=== PATIENT | male | born 1980 | race Caucasian/White ===

== ENCOUNTER 2016-08-09 15:25 | Inpatient (IN) | payer OTHER ==
[~2016-08-09] VITALS: Ht 180.3 cm; Wt 65.8 kg
--- NOTE | 2016-08-10 01:10 | NUR ---
PREADMISSION NOTE At this time pt is mildly intoxicated but is in stable condition and oriented x 4 with no changes in LOC. Pt's vitals are as follows BP: 122/91 HR:109 T:98.0 R: 20 COW: 7 CIWA: 5. Pt was made aware of [facility]'s protocol for assessment of vitals and withdrawal symptoms Q4H. Pt was also encouraged to ask questions or notify staff of any concerns. Pt verbalized an understanding. Pt cleared to come on the floor. Will proceed with admission once client arrives on the floor.
[2016-08-10] MEDS ORDERED: MAGNESIUM HYDROXIDE 30 ML LIQUID UDC PO PRN (01:45)
[2016-08-10] MEDS ORDERED: MIRALAX 17 GM POWD.PACK PO PRN (01:45)
[2016-08-10] MEDS ORDERED: IBUPROFEN 400 MG TABLET PO PRN (01:45)
[2016-08-10] MEDS ORDERED: DICYCLOMINE HCL 20 MG TABLET PO PRN (01:45)
[2016-08-10] MEDS ORDERED: BUPRENORPHINE HCL 2 MG TAB.SUBL SL PRN (01:45)
[2016-08-10] MEDS ORDERED: ONDANSETRON ODT 4 MG TAB.RAPDIS SL PRN (01:45)
[2016-08-10] MEDS ORDERED: diphenhydrAMINE 50 MG CAPSULE PO PRN (01:45)
[2016-08-10] MEDS ORDERED: LOPERAMIDE HCL 2 MG CAPSULE PO PRN ×2 (01:45)
[2016-08-10] MEDS ORDERED: MAG HYDROX/AL HYDROX/SIMETH 30 ML LIQUID UDC PO PRN (01:45)
--- NOTE | 2016-08-10 02:00 | NUR ---
ADMISSION NOTE Pt arrived ambulatory to the [facility] 3rd floor (accompanied by [facility] staff) at approximately 0120. Pt is a 35 y/o male being admitted for Benzodiazepine, Opiate, and Meth dependence and use. Pt denies having any allergies but reported having a PMH of anxiety, depression, bipolar, HTN, appendix removal, spinal meningitis (age 12), Right hand carpal tunnel, and Right foot injury/surgery r/t work (2010) . Pt is with two children. Pt stated " We live in [place]. I would rather not mention my workplace, but my highest level of education is college." Pt reported not having a primary care physician or psych doctor at this time. Pt didn't arrive with any medications but reported once taking Lamictal and Zoloft ( last taken 7 months ago). Pt was then asked about his substance use history including; what substance(s) he is using, what route, frequency, amount, last date used, and last amount used. Pt responded " I'm here to detox from Heroin. I use needles but I do not share them. I started using Heroin heavy 6 years ago after I couldn't get any more pain meds for my foot. I was sober for eight months but I relapsed three months ago. I'm up to about 1 gram a day. I used some around 2:30 pm today (08/09/16) . I had 0.1 and half gram. I took Ativan earlier today too. Just 2 mg to help with my plane ride. I don't abuse that. I started taking Meth 6 years ago too. I just mix it in with my Heroin. A half of a gram can last me the whole week. I had some with the Heroin today too. Probably 0.1 mg " Upon assessment pt's skin is dry and intact with no rashes, lesions, lacerations, abrasions, or bruises noted. PERRLA noted. Skin turgor indicates adequate hydration. Lung auscultations are clear in all lobes, however pt has a non productive cough. No SOB noted or reported. Bowel sounds present in all 4 quadrants. Abdomen soft and non distended. 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 Pt denies any pain/discomfort at this time. Vital signs: BP: 122/91 HR:109 T:98.0 R: 20 COW: 7 CIWA: 5. All safety measures in place; side rails up x 2, bed locked and in low position, and call light within reach. Will continue to monitor.
[2016-08-10] MEDS: CLONIDINE HCL 0.1 MG TABLET PO PRN (02:27)
[2016-08-10] MEDS: METHOCARBAMOL 750 MG TABLET PO PRN (02:27)
--- NOTE | 2016-08-10 02:27 | NUR ---
CLONIDINE AND ROBAXIN PRN ADMINISTRATION Pt reported being restless and mildly agitated along with having body aches. Robaxin 750 mg PO PRN and Clonidine 0.1 mg PO PRN (blood pressure at this time 127/91) was given. Pt was encouraged to notify staff of any changes in condition or of any concerns. Pt verbalized an understanding. All safety measures in place. Will monitor for effectiveness.
[2016-08-10] MEDS ORDERED: CLONIDINE HCL 0.1 MG TABLET ONE (02:34)
[2016-08-10] MEDS ORDERED: METHOCARBAMOL 750 MG TABLET ONE (02:34)
[2016-08-10 02:45] LABS: *AMPHETAMINE, URINE POSITIVE (NEGATIVE); *BARBITURATE, URINE NEGATIVE (NEGATIVE); *CANNABINOID, URINE NEGATIVE (NEGATIVE); *COCCAINE, URINE NEGATIVE (NEGATIVE); *OPIATE, URINE POSITIVE (NEGATIVE); *PHENCYCLIDINE SCREEN,URINE NEGATIVE (NEGATIVE)
[2016-08-10 03:11] LABS: ALANINE AMINOTRANSFERASE 28 U/L (16-63); ALKALINE PHOSPHATASE 116 U/L (50-136); ASPARTATE AMINOTRANSFERASE 13 U/L (15-37); BILIRUBIN,TOTAL 0.5 mg/dL (0.2-1.0); CARBON DIOXIDE 26 mmol/L (21-32); CHLORIDE 105 mmol/L (98-107); GLUCOSE 130 mg/dL (74-106); MAGNESIUM 2.3 mg/dL (1.8-2.4); POTASSIUM 3.4 mmol/L (3.5-5.1); TOTAL PROTEIN, SERUM 7.6 g/dL (6.4-8.2); UREA NITROGEN, BLOOD 7 mg/dL (7-18)
[2016-08-10 03:13] LABS: ETHANOL < 3 MG/DL (0-0)
[2016-08-10 03:24] LABS: BASOPHILS # (AUTO) 0.2 K/uL (0.0-8.0); BASOPHILS % (AUTO) 1.6 % (0.0-2.0); EOSINOPHILS # (AUTO) 0.1 K/uL (0.0-0.7); EOSINOPHILS % (AUTO) 0.9 % (0.0-7.0); HEMATOCRIT 43.1 % (40-50); HEMOGLOBIN 13.8 G/DL (14.0-18.0); LYMPHOCYTES # (AUTO) 1.9 K/UL (0.8-4.8); LYMPHOCYTES % (AUTO) 15.9 % (20.5-51.5); MEAN CORPUSCULAR HEMOGLOBIN 26.2 UUG (27.0-31.0); MEAN CORPUSCULAR HGB CONC 32 g/dL (32.0-37.0); MEAN CORPUSCULAR VOLUME 81.9 FL (82.0-92.0); MONOCYTES # (AUTO) 0.6 K/UL (0.1-1.30); MONOCYTES % (AUTO) 5.5 % (0.0-11.0); NEUTROPHILS # (AUTO) 8.9 K/UL (1.8-8.9); NEUTROPHILS % (AUTO) 76.1 % (38.5-71.5); PLATELET COUNT (AUTO) 291 K/UL (150-450); RED BLOOD CELL COUNT(AUTO) 5.26 MIL/UL (4.7-6.1); WHITE BLOOD COUNT (AUTO) 11.7 K/UL (4.0-11.2)
--- NOTE | 2016-08-10 03:27 | NUR ---
ROBAXIN AND CLONIDINE PRN REASSESSMENT Pt stated " I don't feel the best, but it helped a little bit." PRNS effective. Will continue to monitor.
[2016-08-10 04:00] VITALS: BP 138/92
[2016-08-10] MEDS: HYDROXYZINE PAMOATE 25 MG CAPSULE PO PRN (04:29)
--- NOTE | 2016-08-10 04:29 | NUR ---
VISTARIL PRN ADMINISTRATION Pt stated " I can't relax and I'm anxious. I know I'm not going to be able to sleep tonight." Pt was offered Benadryl but declined stating " It doesn't work for me. It does the opposite and wires me up." With pt's verbal consent Vistaril 50 mg PO PRN was given. Pt was encouraged to notify staff of any changes in condition or of any concerns. Pt verbalized an understanding. All safety measures in place. Will monitor for effectiveness.
[2016-08-10] MEDS ORDERED: HYDROXYZINE PAMOATE 25 MG CAPSULE ONE (04:32)
[2016-08-10] MEDS ORDERED: POTASSIUM CHLORIDE 20 MEQ TAB.PRT.SR ONE (04:36)
--- NOTE | 2016-08-10 05:29 | NUR ---
VISTARIL PRN REASSESSMENT At this time pt is asleep in bed with no signs of discomfort/distress noted. Pt is aroused with noise and stated " I'm okay for now." PRN effective. Will continue to monitor.
[2016-08-10] MEDS ORDERED: POTASSIUM CHLORIDE 20 MEQ TAB.PRT.SR PO ONE (06:00)
--- NOTE | 2016-08-10 07:16 | NUR ---
END OF SHIFT NOTE Pt is a 35 y/o male being admitted for Benzodiazepine, Opiate, and Meth dependence and use. Pt denies having any allergies but reported having a PMH of anxiety, depression, bipolar, HTN, appendix removal, spinal meningitis (age 12), Right hand carpal tunnel, and Right foot injury/surgery r/t work (2010). Pt is not on a taper at this time but has PRN medications for any discomfort/distress. Pt received Clonidine 0.1 mg PO PRN, Robaxin 750 mg PO PRN, and Vistaril 50 mg PO PRN during the shift. Pt also received K dur 40 MEQ for insufficient potassium level. Pt slept only 2 hours. Last COW: 8 and CIWA: 5 (0400). All safety measures in place. Endorsed to the oncoming nurse.
[2016-08-10 08:00] VITALS: BP 131/93
[2016-08-10] MEDS: MULTIVITAMINS,THERAPEUTIC TABLET PO SCH (08:50)
[2016-08-10] MEDS ORDERED: LORAZEPAM 2 MG/1 ML VIAL IM PRN (09:30)
[2016-08-10] MEDS ORDERED: BUPRENORPHINE HCL 2 MG TAB.SUBL SL SCH (09:30)
[2016-08-10] MEDS ORDERED: LORAZEPAM 1 MG TABLET PO PRN ×2 (09:30)
--- NOTE | 2016-08-10 10:00 | NUR ---
START OF SHIFT Received report from table games shift manager nurse. Received patient laying in bed with eyes closed. Patient is 35 year old male admitted for medically supervised withdrawal from benzo, meth and opiates. Patient is full code with NKA. On fall precaution and seizure precautions. On assessment this AM: CIWA: 6 and COWS: 7. Patient reports mainly on body aches, also reports tactile sensation and anxiety. Denies any SOB, chest pain, tremors, sweating, or headache, visual or auditory hallucinations. Vitals WNL. Refused multivitamin. Patient was encouraged to attend group meetings today. Will continue to monitor patient.
[2016-08-10] MEDS ORDERED: BACLOFEN 20 MG TABLET PO ONE (10:45)
[2016-08-10] MEDS ORDERED: LORAZEPAM 1 MG TABLET PO ONE (10:45)
[2016-08-10] MEDS ORDERED: CLONIDINE HCL 0.1 MG TABLET PO ONE (10:45)
--- NOTE | 2016-08-10 10:46 | NUR ---
ONE TIME ATIVAN Patient received one time Ativan 1mg po tab as ordered. CIWA: 9
--- NOTE | 2016-08-10 11:46 | NUR ---
REASSESSMENT (ONE TIME ATIVAN) Patient reports feeling much better, at ease, decreased body aches. CIWA: 5
[2016-08-10 12:00] VITALS: BP 144/93
[2016-08-10] MEDS ORDERED: IBUPROFEN 600 MG TABLET PO PRN (12:45)
[2016-08-10] MEDS: BUPRENORPHINE HCL 2 MG TAB.SUBL SL SCH ×3 (13:15→21:04)
--- NOTE | 2016-08-10 15:20 | NUR ---
Therapist spoke with client, and encouraged client to attend daily group therapy. Client agreed and stated that he will attend the 3:30pm group today.
[2016-08-10 16:00] VITALS: BP 145/97
[2016-08-10] MEDS: ACETAMINOPHEN 325 MG TABLET PO PRN (17:16)
--- NOTE | 2016-08-10 17:16 | NUR ---
PRN TYLENOL Patient complains of headache 09/25. PRN Tylenol given. Will continue to monitor patient and effectiveness of med.
--- NOTE | 2016-08-10 18:16 | NUR ---
REASSESSMENT PRN TYLENOL Patient reports headache is better, pain 3/10.
--- NOTE | 2016-08-10 19:00 | NUR ---
END OF SHIFT Patient is 35 year old male admitted for medically supervised withdrawal from benzo, meth and opiates. Patient is full code with NKA. On fall precaution and seizure precautions. Patient started his 5-day subutex taper today (08/10/16) with COWS 13. Most recent CIWA: 7 and COWS: 5. After receiving his first dose of Subutex, patient reports body aches has improved a lot. Patient reports mild anxiety and restless legs. Patient's behavior is appropriate. Patient is tolerating her current diet without n/v. All needs met. parking enforcershift boss will continue to monitor patient.
[2016-08-10 20:00] VITALS: BP 143/96
--- NOTE | 2016-08-10 20:00 | NUR ---
START OF SHIFT NOTE PATIENT ALERT AND ORIENTED X 4. RESPIRATION EVEN AND UNLABORED. PATIENT REPORTS PMH OF ANXIETY IN EVIDENCE OF HR 103, ,TREMORS, NO ABDOMINAL CRAMPING, CHILLS, SWEATING, STUFFY NOSE AND BACK PAIN 4/10 , TOLERABLE, STATES HE DOES NOT NEED PAIN MEDICATION. PATIENT STATES HE ATTENDED ALL GROUPS . RECEIVED REPORT FROM DAY SHIFT NURSE. PATIENT IS A 35 YEAR OLD MALE, ADMITTED FOR OPIATE/BENZO/METH DEPENDENCE. PATIENT IS ON 1ST DAY OF HIS 5 DAY ATIVAN SUBUTEX TAPER. PATIENT IS FULL CODE, REGULAR DIET AND NO KNOWN ALLERGY. PATIENT REPORTS PMH OF BIPOLAR, DEPRESSION. ANXIETY. HTN, SPINAL MENINGITIS (12 YEARS OLD), APPENDIX REMOVAL, RIGHT HAND CARPAL TUNNEL , AND RIGHT FOOT INJURY. PATIENT IS ON FALL/SEIZURE PRECAUTION. SKIN INTACT. PATIENT WAS GIVEN PRN TYLENOL DURING THE DAY. LAST CIWA 7 AND COWS 5. SAFETY MEASURES IN PLACE. CALL LIGHT IN REACH. WILL CONTINUE TO MONITOR.
[2016-08-11] VITALS: BP 105/72
[2016-08-11 04:00] VITALS: BP 115/72
[2016-08-11 05:09] LABS: HEPATITIS B SURFACE AG Negative (Negative)
--- NOTE | 2016-08-11 07:36 | NUR ---
END OF SHIFT NOTE PATIENT REMAIN ALERT AND ORIENTED X 4. RESPIRATION EVEN AND UNLABORED. PATIENT REPORTED ANXIETY, ,TREMORS, NO ABDOMINAL CRAMPING, CHILLS , SWEATING, STUFFY NOSE AND BACK PAIN 4/10 , TOLERABLE BEGINNING OF SHIFT. PATIENT STATES HE ATTENDED ALL GROUPS . PATIENT IS A 35 YEAR OLD MALE, ADMITTED FOR OPIATE/BENZO/METH DEPENDENCE. PATIENT IS ON 1ST DAY OF HIS 5 DAY SUBUTEX TAPER, TOLERATED WELL. NO ADVERSE REACTION. PATIENT IS FULL CODE, REGULAR DIET AND NO KNOWN ALLERGY. PATIENT REPORTS PMH OF BIPOLAR, DEPRESSION. ANXIETY. HTN, SPINAL MENINGITIS (12 YEARS OLD), APPENDIX REMOVAL, RIGHT HAND CARPAL TUNNEL , AND RIGHT FOOT INJURY. PATIENT IS ON FALL/SEIZURE PRECAUTION. SKIN INTACT. PATIENT DID NOT REQUIRE ANY PRN MEDICATION DURING SHIFT . PATIENT COMPLIANT WITH MEDICATION AND TREATMENT PLAN. REMAIN FREE OF INJURY. SAFETY MEASURES IN PLACE. CALL LIGHT IN REACH. WILL CONTINUE TO MONITOR. SLEPT 8 HOURS. FLUID INTAKE 1,700 ML. VOIDED X 4 . NO BM. LAST COWS 2 AND CIWA 1.
--- NOTE | 2016-08-11 07:55 | NUR ---
START OF SHIFT Rcvd endorsement from night nurse, client is in bed, A/O to name, place, and time, he presents with anxious mood, flat affect, stating "I feel like crap, I was sweating, I got chills, my head feel really tight." he denies any N/V/D. He denies any SI/HI. Encouraged increased fluids to assist in facilitating detox. Encouraged group attendance to help maintain sobriety. Client is on 4 out of 5 day of Subutex taper to managed s/sx of withdrawal he was admitted for medically-supervised withdrawal from opioids, benzodiazepine and meth. He denies any hx of induced-withdrawal seizure. Full code status, NKA, regular diet. He slept 8 hrs. Last COWS 2/ CIWA 1 @ 0400. Seizure precautions. Side rails x 2 up/padded. Call light within reach. Will continue plan of care.
[2016-08-11] MEDS: ACETAMINOPHEN 325 MG TABLET PO PRN (08:11)
[2016-08-11] MEDS: MULTIVITAMINS,THERAPEUTIC TABLET PO SCH (08:11)
--- NOTE | 2016-08-11 08:11 | NUR ---
PRN Tylenol 650mg Client reports headache around head, he stated "It feel like a rubber band is at my head." 07/26. Encouraged to increase PO fluid intake as tolerated, Tylenol 650mg PO administered. Risk/benefits discuss. Call light within reach.
[2016-08-11] MEDS: BUPRENORPHINE HCL 2 MG TAB.SUBL SL SCH ×3 (08:12→20:22)
--- NOTE | 2016-08-11 08:14 | NUR ---
TB TEST ADMINISTERED TO L F/A, CLIENT TOLERATED WELL.
[2016-08-11 08:33] VITALS: BP 116/83
[2016-08-11] MEDS ORDERED: TUBERCULIN,PURIF.PROT.DERIV. 5 TU/0.1 ML TEST ID ONE (09:00)
--- NOTE | 2016-08-11 09:11 | NUR ---
Reassessment PRN Tylenol 650mg Client reports relief from headache 03/28, but tolerable, stating "I know what to expect from detox, I just need to rest and keep drinking fluids." Call light within reach.
[2016-08-11] MEDS ORDERED: CLONIDINE HCL 0.1 MG TABLET PO ONE (12:00)
[2016-08-11] MEDS ORDERED: BUPRENORPHINE HCL 2 MG TAB.SUBL SL ONE (12:00)
[2016-08-11] MEDS: CLONIDINE HCL 0.1 MG TABLET PO PRN ×2 (12:20→20:23)
[2016-08-11 12:23] VITALS: BP 147/88
--- NOTE | 2016-08-11 13:34 | NUR ---
Therapist spoke with client about attending group therapy sessions. Client asked when the next group session was and therapist informed him. Client stated that he was looking forward to the afternoon group.
--- NOTE | 2016-08-11 13:57 | NUR ---
Nursing notes Client's Franchesca called to inquire about his status, Client has been having withdrawal symptoms and being managed with taper and PRN medications, she verbalized understanding.
[2016-08-11] MEDS: GABAPENTIN 300 MG CAPSULE PO SCH ×2 (15:21→20:22)
[2016-08-11 15:25] LABS: BASOPHILS # (AUTO) 0.1 K/uL (0.0-8.0); BASOPHILS % (AUTO) 0.8 % (0.0-2.0); EOSINOPHILS # (AUTO) 0.4 K/uL (0.0-0.7); EOSINOPHILS % (AUTO) 3.6 % (0.0-7.0); HEMATOCRIT 42.8 % (40-50); HEMOGLOBIN 14.1 G/DL (14.0-18.0); LYMPHOCYTES # (AUTO) 2.7 K/UL (0.8-4.8); LYMPHOCYTES % (AUTO) 21.9 % (20.5-51.5); MEAN CORPUSCULAR HEMOGLOBIN 27.3 UUG (27.0-31.0); MEAN CORPUSCULAR HGB CONC 33 g/dL (32.0-37.0); MEAN CORPUSCULAR VOLUME 83.1 FL (82.0-92.0); MONOCYTES # (AUTO) 1.1 K/UL (0.1-1.30); MONOCYTES % (AUTO) 9.2 % (0.0-11.0); NEUTROPHILS # (AUTO) 8.1 K/UL (1.8-8.9); NEUTROPHILS % (AUTO) 64.5 % (38.5-71.5); PLATELET COUNT (AUTO) 297 K/UL (150-450); RED BLOOD CELL COUNT(AUTO) 5.15 MIL/UL (4.7-6.1); WHITE BLOOD COUNT (AUTO) 12.4 K/UL (4.0-11.2)
[2016-08-11 15:30] LABS: PHOSPHOROUS 3.4 mg/dL (2.5-4.9); POTASSIUM 4.6 mmol/L (3.5-5.1)
[2016-08-11 16:00] VITALS: BP 128/81
--- NOTE | 2016-08-11 17:13 | NUR ---
MD NOTIFICATION Dr. Calvin made aware of lab values WBC 12.4 IRON 29 % SATURATION 10 NNO at this time.
--- NOTE | 2016-08-11 18:24 | NUR ---
END OF SHIFT Client is in group therapy to improve coping skills. Subutex taper continues and is effective managing his s/sx of withdrawal (chills, body aches, anxiety and irritability) He is a 35 y/o male admitted to [facility] on 08/10/16 for medically-supervised withdrawal from opioids, benzodiazepines and meth. NKA, Regular diet, full code. Last CIWA 4/COWS 6. PRN Tylenol for FLORIAN; noted effective. Adequate intake 3326mL and output void x 4, stool x 2. Seizure precautions. Side rails x 2 up/padded. Call light within reach. Endorsed to incoming nurse.
--- NOTE | 2016-08-11 18:24 | NUR ---
START OF SHIFT NOTE Patient endorsed by day shift nurse. SBAR Report received. Patient is a 35 year old male admitted to [facility] on 08/10/16 for Opioid/Benzodiazepines and Meth dependence, placed on 5 Day Subutex Taper since 08/10/16. Patient tolerated well. Patient remains compliant with treatment plan, medications, and diet regime. Patient reports No Known allergies. Patient on Regular Diet, placed on Full Code, Seizures and Fall Precautions. Patient denies Seizures History. Patient reports PMH: Alcohol Dependence Hx: "2 years sober, since 2014", Anxiety, Bipolar Disorder, Depression, HTN, Spinal Meningitis ("12 years old"). Past Surgery History: Appendectomy, Right Hand carpal Tunnel. Patient reports Substance Use: Heroin via IV: "1 gram every day during last three months. Last used 0.1 gram on 08/09/16 at 14:00". Lorazepam one time on the day prior to admission, on 08/09/16". Methamphetamine salts "Via smoke inhalation 0.5 gram weekly, on an intermittently non-daily basis". Last used " 0.1 gram on 08/09/16". Patient reports a history of alcohol use disorder, but "remains in sober remission". He has struggled with multiple attempts at sobriety, the longest being for three years, which ended six since 2014". He has been to multiple treatment programs in the past, the latest being at "[facility] for 21 days, on ". The patient denies a History of Seizures. At the time of endorsement, patient is alert and oriented x4, Speech is clear and soft. COWS 6, CIWA 4: The patient reported the following symptoms of withdrawal: anxiety, agitation, nervousness, body aches, diaphoresis, abdominal cramps, headache, restless legs, and fatigue. Patient denies SI/HI. VS WNL. Breathing is even and unlabored. Patient denies SOB and chest pain. Abdomen is soft, non-distended. Bowel Sounds is active in all x 4 quadrants. Last BM was "08/12/16 at 10:00". Skin is intact, warm and moist by tough. Patient encouraged to fluids intake, as tolerated. Patient attended group activities to improve copping skills. All needs met. Safety measures in place by hospital policy: Call light within reach, bed in the lowest position and lock, padded rails up x2. Will continue to monitor closely. Addendum: 08/12/16 at 0531 by LIZBET NESS RN Last BM was "08/11/16 at 10:00".
[2016-08-11 20:00] VITALS: BP 151/101
--- NOTE | 2016-08-11 20:23 | NUR ---
PRN CATAPRES (CLONIDINE HCL) 0.1 MG PO ADMINISTRATION Pt's BP: 151/101; HR; 98. Ordered PRN Clonidine PO discussed with patient. Patient was educated for actions, side effects, and adverse reactions of Catapres ( Clonidine). Patient return his knowledge back by verbalized understanding. PRN Catapres (Clonidine) 0.1 mg 1 tablet PO administrated as ordered with full glasses of water. Patient tolerated well. Will re-assess in one hour. All needs met. Safety measures in place by hospital policy: Call light within reach, bed in the lowest position and lock, padded rails up x2. Will continue to monitor closely.
--- NOTE | 2016-08-11 21:23 | NUR ---
RE - ASSESSMENT BP 124/61, HR:88 bpm. Clonidine PO was effective. All needs met. Safety measures in place by hospital policy: Call light within reach, bed in the lowest position and lock, padded rails up x2. Will continue to monitor closely.
--- NOTE | 2016-08-11 21:40 | NUR ---
DISREGARD SERENITY DETOX TREATMENT PLAN FROM 08/11/16 AT 21:40: WRONG PATIENT. Addendum: 08/12/16 at 0341 by LIZBET NESS RN Amended: Links added.
--- NOTE | 2016-08-11 21:40 | NUR ---
DISREGARD PAST MEDICAL HISTORY AT 21:40: WRONG PATIENT. Addendum: 08/12/16 at 0336 by LIZBET NESS RN Amended: Links added.
--- NOTE | 2016-08-11 21:40 | NUR ---
PLEASE, DISREGARD SERENITY INITIAL ASSESSMENT FROM 08/11/16 AT 21:40: WRONG PATIENT. Addendum: 08/12/16 at 0338 by LIZBET NESS RN Amended: Links added.
--- NOTE | 2016-08-11 21:40 | NUR ---
DISREGARD WRONG ADMISSION FOR WRONG PATIENT. Addendum: 08/12/16 at 0206 by LIZBET NSES RN Amended: Links added.
--- NOTE | 2016-08-11 21:40 | NUR ---
DISREGARD COWS ASSESSMENT FROM 08/11/14 AT 21:40: WRONG PATIENT. Addendum: 08/12/16 at 0339 by LIZBET NESS RN Amended: Links added.
[2016-08-12] VITALS: BP 92/59
--- NOTE | 2016-08-12 04:00 | NUR ---
VS REFUSED AND COWS/CIWA DEFERRED Patient refused to be woken up for 04:00 VS. COWS/CIWA deferred d/t patient sleeping to assess while patient is awake. Safety measures on place by hospital policy: Call light within reach; Bed in lowest position and locked; side rails up x2. Will continue to monitor.
--- NOTE | 2016-08-12 07:06 | NUR ---
END OF SHIFT NOTE Patient endorsed to day shift nurse in stable condition. Report given. Patient is a 35 year old male admitted to [facility] on 08/10/16 for Opioid/Benzodiazepines and Meth dependence, placed on 5 Day Subutex Taper since 08/10/16. NKA, Regular Diet, Full Code, Seizures and Fall Precautions. Patient denies Seizures History. COWS decreased from 6 to 5. CIWA decreased from 4 to 3: patient presented with the following symptoms of withdrawal: anxiety, agitation, nervousness, body aches, diaphoresis, abdominal cramps, headache, restless legs, and fatigue. Patient denies SI/HI. Patient denies SOB and chest pain. Last BM was "08/11/16 at 10:00". Skin is intact, warm and moist by tough. PRN Clonidine 0.1 mg PO administrated as ordered for High Blood Pressure, and was effective. VS WNL. Patient remains compliant with treatment plan, medications, and diet regime. Patient encouraged to fluids intake, as tolerated. Patient slept 8 hours, Intake 2100 ml, voided x3. Patient attended group activities to improve copping skills. All needs met. Safety measures in place by hospital policy: Call light within reach, bed in the lowest position and lock, padded rails up x2.
--- NOTE | 2016-08-12 07:55 | NUR ---
START OF SHIFT Rcvd endorsement from night nurse, client is in bed, A/O to name, place, and time, he presents with depressed mood, flat affect, stating "I was able to sleep last night, but my lower back aches now." Client reports pain 3/10 low back pain, he denies any N/V/D. He denies any SI/HI. Encouraged increased fluids to assist in facilitating detox. Encouraged group attendance to help maintain sobriety. Client is on 3 out of 5 day of Subutex taper to managed s/sx of withdrawal he was admitted for medically-supervised withdrawal from opioids, benzodiazepine and meth. He denies any hx of induced-withdrawal seizure. Full code status, NKA, regular diet. He slept 8 hrs. Last COWS 5/ CIWA 3 @ 2400. Seizure precautions. Side rails x 2 up/padded. Call light within reach. Will continue plan of care.
[2016-08-12] MEDS: GABAPENTIN 300 MG CAPSULE PO SCH ×3 (08:31→21:16)
[2016-08-12] MEDS: METHOCARBAMOL 750 MG TABLET PO PRN ×3 (08:31→21:23)
--- NOTE | 2016-08-12 08:31 | NUR ---
PRN ROBAXIN Client reports low back aches and spasms 05/26, Robaxin 750mg PO administered, risk/benefits discuss, he verbalized understanding. Call light within reach.
[2016-08-12] MEDS: MULTIVITAMINS,THERAPEUTIC TABLET PO SCH (08:32)
[2016-08-12 08:35] VITALS: BP 134/94
[2016-08-12] MEDS ORDERED: BUPRENORPHINE HCL 2 MG TAB.SUBL SL SCH (09:00)
--- NOTE | 2016-08-12 09:31 | NUR ---
Reassessment PRN ROBAXIN Client reports relief from low back aches and spasms 0/10, Robaxin 750mg effective. Call light within reach.
--- NOTE | 2016-08-12 10:00 | NUR ---
MD NOTIFICATION Dr. Calvin made aware of lab values, WBC 12.4 IRON 29 % SATURATION 10 VIT D 26.2 NNO at this time, will follow-up. Client is in recreational room, no discomfort noted. Will continue to monitor.
[2016-08-12 12:50] VITALS: BP 140/91
[2016-08-12] MEDS ORDERED: BENZOCAINE/MENTH/CETYLPYRD LOZENGE MM PRN (14:00)
[2016-08-12] MEDS ORDERED: GUAIFENESIN/DEXTROMETHORPHAN 5 ML UDC PO PRN (14:00)
--- NOTE | 2016-08-12 15:00 | NUR ---
MD NOTIFICATION Client reports intermittent nausea, no episodes of emesis, she declines Svitlana stating "No, it doesn't really work for me, do you have ant Dilaudid?" Educate client on difference between antiemetics and opioid medication, reinforcement needed. Client intake ~25%, PO intake 260mL.
[2016-08-12] MEDS: BUPRENORPHINE HCL 2 MG TAB.SUBL SL SCH ×2 (15:04→21:16)
[2016-08-12 16:45] VITALS: BP 136/74
--- NOTE | 2016-08-12 16:49 | NUR ---
PRN ROBAXIN Client reports low back aches and spasms 05/26, Robaxin 750mg PO administered, risk/benefits discuss, he verbalized understanding. Call light within reach.
--- NOTE | 2016-08-12 17:40 | NUR ---
Collect swabs for rapid strep, rapid influenza, throat culture, client tolerated well.
--- NOTE | 2016-08-12 17:49 | NUR ---
Reassessment PRN ROBAXIN Client reports relief from low back aches and spasms 0/10, Robaxin 750mg effective. Call light within reach
--- NOTE | 2016-08-12 19:32 | NUR ---
END OF SHIFT Client is in group therapy to improve coping skills. Subutex taper continues and is effective managing his s/sx of withdrawal (chills, body aches, anxiety and irritability) He is a 35 y/o male admitted to [facility] on 08/10/16 for medically-supervised withdrawal from opioids, benzodiazepines and meth. NKA, Regular diet, full code. Throat cx , rapid influenza, rapid group A step, collected. Last CIWA 6. PRN Robaxin x 2 for low back pain 05/26, noted effective. Adequate intake 3255mL and output void x 5, stool x 1. Seizure precautions. Side rails x 2 up/padded. Call light within reach. Endorsed to incoming nurse.
--- NOTE | 2016-08-12 19:32 | NUR ---
START OF SHIFT NOTE Patient endorsed by day shift nurse. Report received. Patient is a 35 year old male admitted to [facility] on 08/10/16 for Opioid/Benzodiazepines and Meth dependence, placed on 5 Day Subutex Taper since 08/10/16. Patient tolerated well. Patient remains compliant with treatment plan, medications, and diet regime. No Known allergies, Regular Diet, Full Code, Seizures and Fall Precautions. Patient denies Seizures History. At the time of endorsement, Patient attended group activities. During assessment, patient is alert and oriented x4, Speech is clear and soft. COWS 6, CIWA 4: The patient c/o following symptoms of withdrawal: anxiety, agitation, nervousness, body aches, diaphoresis, headache, restless legs, and fatigue. Patient denies SI/HI. VS WNL. Breathing is even and unlabored. Patient denies SOB and chest pain. Patient c/o throat sore: Throat CX , Rapid Influenza, Rapid Group A Streptococcus Screen collected by day shift nurse. Rapid Group A Streptococcus Screen results received : NEGATIVE . Abdomen is soft, non-distended. Bowel Sounds is active in all x 4 quadrants. Last BM was "08/12/16 in the morning". Skin is intact, warm and moist by tough. Patient encouraged to fluids intake, as tolerated. All needs met. Safety measures in place by hospital policy: Call light within reach, bed in the lowest position and lock, padded rails up x2. Will continue to monitor closely.
[2016-08-12 20:00] VITALS: BP 146/99
[2016-08-12] MEDS: HYDROXYZINE PAMOATE 25 MG CAPSULE PO PRN (21:24)
--- NOTE | 2016-08-12 21:24 | NUR ---
PRN ROBAXIN PO AND PRN VISTARIL PO ADMINISTRATION Patient c/o body aches and muscles spasm "07/26. Patient was assessed. Ordered PRN Robaxin PO and PRN Vistaril PO discussed with patient. Patient was educated for actions, side effects, and adverse reactions of Robaxin and Vistaril. Patient return his knowledge back by verbalized understanding PRN Robaxin PO and PRN Vistaril PO administrated as ordered with full glass of water. Patient tolerated well. Will re-assess in one hour. All needs met. Safety measures in place by hospital policy: Call light within reach, bed in the lowest position and lock, padded rails up x2. Will continue to monitor closely.
--- NOTE | 2016-08-12 22:24 | NUR ---
RE - ASSESSMENT Patient is in the bed with closed eyes. Patient is sleeping. RR: 17. Breathing is unlabored and even. PRN Robaxin PO and PRN Vistaril PO were effective. All needs met. Safety measures in place: Call light within reach, bed in the lowest position and locked, padded rails up x2. Will continue to monitor closely.
--- NOTE | 2016-08-13 | NUR ---
VS REFUSED AND COWS/CIWA DEFERRED Patient refused to be woken up for 00:00 VS. COWS/CIWA deferred d/t patient sleeping to assess while patient is awake. Safety measures on place by hospital policy: Call light within reach; Bed in lowest position and locked; side rails up x2. Will continue to monitor.
[2016-08-13 06:00] VITALS: BP 101/67
--- NOTE | 2016-08-13 06:00 | NUR ---
VS, COWS/CIWA OBTAINED Patient walk up at 06:00, and assessed. During the cnc machinist 2nd shift COWS decreased from 6 to 2; CIWA decreased from 4to 2. Patient presented with the following symptoms of withdrawal: Anxiety, agitation, nervousness, diaphoresis, abdominal cramps, headache, restless legs, tremors that can be felt, and fatigue. VS: T:98'4, HR: 65; RA O2 Sat: 98%; RR: 18, Pain level: "0/10". All needs met. Safety measures in place by hospital policy: Call light within reach, bed in the lowest position and lock, padded rail up x2.
--- NOTE | 2016-08-13 07:10 | NUR ---
END OF SHIFT NOTE: Patient endorsed to day shift nurse in stable condition. Report given. Patient is a 35 year old male admitted to [facility] on 08/10/16 for Opioid/Benzodiazepines and Meth dependence, placed on 5 Day Subutex Taper since 08/10/16. Patient tolerated well. Patient remains compliant with treatment plan, medications, and diet regime. NKA, Regular Diet, Full Code, Seizures and Fall Precautions. Patient denies Seizures History. During the cnc machinist 2nd shift COWS decreased from 6 to 2; CIWA decreased from 4 to 2. Patient presented with the following symptoms of withdrawal: Anxiety, agitation, nervousness, diaphoresis, abdominal cramps, headache, restless legs, tremors that can be felt, and fatigue. Patient denies SI/HI. VS: T:98'4, HR: 65; RA O2 Sat: 98%; RR: 18, Pain level: "0/10". Breathing is even and unlabored. Patient denies SOB and chest pain. Skin is intact, warm and moist by tough. Patient encouraged to fluids intake, as tolerated. Patient attended group activities. PRN Robaxin PO and PRN Vistaril PO administrated at 21:24 were effective. Patient slept 6 hours, intake 1500 ml, voided x3, stool x1. All needs met. Safety measures in place by hospital policy: Call light within reach, bed in the lowest position and lock, padded rails up x2.
[2016-08-13 08:00] VITALS: BP 129/84
--- NOTE | 2016-08-13 08:00 | NUR ---
START OF SHIFT NOTE Received pt this AM Aox4. Patient states he is just trying to sleep in he is feeling tired. He reports stuffiness, aches, and sleeping on and off during the night. Patient on 5 day Subutex taper. He was given PRN Vistaril and Robaxin by import customer service manager. He slept 6 hours. Last COWS 2 CIWA 2 per night nurse. Encouraged pt to increase fluid intake to facilitate detox. Encouraged attendance of groups and activities.
[2016-08-13] MEDS: MULTIVITAMINS,THERAPEUTIC TABLET PO SCH (09:04)
[2016-08-13] MEDS: BUPRENORPHINE HCL 2 MG TAB.SUBL SL SCH ×3 (09:04→20:34)
[2016-08-13] MEDS: FERROUS SULFATE 325 MG TABEC PO SCH ×2 (09:05→20:35)
[2016-08-13] MEDS: GABAPENTIN 300 MG CAPSULE PO SCH ×3 (09:05→20:34)
[2016-08-13] MEDS: CHOLECALCIFEROL 1,000 UNIT TABLET PO SCH (09:05)
[2016-08-13] MEDS: ASCORBIC ACID 250 MG TABLET PO SCH ×2 (09:05→20:34)
[2016-08-13 09:39] LABS: MAGNESIUM 2.1 mg/dL (1.8-2.4); POTASSIUM 4.5 mmol/L (3.5-5.1)
[2016-08-13 10:01] LABS: BASOPHILS # (AUTO) 0.1 K/uL (0.0-8.0); BASOPHILS % (AUTO) 0.7 % (0.0-2.0); EOSINOPHILS # (AUTO) 0.4 K/uL (0.0-0.7); EOSINOPHILS % (AUTO) 3.3 % (0.0-7.0); HEMATOCRIT 44.3 % (40-50); HEMOGLOBIN 14.6 G/DL (14.0-18.0); LYMPHOCYTES # (AUTO) 2.9 K/UL (0.8-4.8); LYMPHOCYTES % (AUTO) 24.5 % (20.5-51.5); MEAN CORPUSCULAR HEMOGLOBIN 27.1 UUG (27.0-31.0); MEAN CORPUSCULAR HGB CONC 33 g/dL (32.0-37.0); MEAN CORPUSCULAR VOLUME 82.3 FL (82.0-92.0); MONOCYTES % (AUTO) 8.9 % (0.0-11.0); NEUTROPHILS # (AUTO) 7.4 K/UL (1.8-8.9); NEUTROPHILS % (AUTO) 62.6 % (38.5-71.5); RED BLOOD CELL COUNT(AUTO) 5.39 MIL/UL (4.7-6.1); WHITE BLOOD COUNT (AUTO) 11.8 K/UL (4.0-11.2)
[2016-08-13 10:03] LABS: PLATELET COUNT (AUTO) 348 K/UL (150-450)
[2016-08-13] MEDS ORDERED: CLONIDINE HCL 0.1 MG TABLET PO ONE (11:30)
[2016-08-13] MEDS ORDERED: BUPRENORPHINE HCL 2 MG TAB.SUBL SL ONE (11:30)
[2016-08-13 12:00] VITALS: BP 162/94
[2016-08-13] MEDS: CLONIDINE HCL 0.1 MG TABLET PO SCH ×2 (14:12→21:00)
[2016-08-13 16:00] VITALS: BP 131/77
--- NOTE | 2016-08-13 18:35 | NUR ---
START OF SHIFT NOTE Report received from Stephany day shift nurse. She endorsed a patient, 35 year old male admitted to [facility] on 08/10/16 for Opioid/Benzodiazepines and Meth dependence, continues 5 Day Subutex Taper since 08/10/16. Patient tolerated well. NKA, Regular Diet, Full Code, Seizures and Fall Precautions. Patient denies Seizures History. Patient is full ambulatory. Upon endorsement, patient is alert and oriented x4, speech is clear and soft. COWS 4, CIWA 4. Patient c/o following symptoms of withdrawal: anxiety, agitation, chills, nervousness, tremors that can be felt, and sweats. Patient denies SI/HI. VS WNL. Breathing is even and unlabored. Patient denies SOB and chest pain. Abdomen is soft and non-distended. Bowel Sounds active in all 4 quadrants. Last BM was "08/13/16 in the morning". Skin is intact, warm and moist to touch. Encouraged fluid intake, as tolerated. Patient attended group activities. Patient remains compliant with treatment plan, medications, and diet regimen. All needs met. Safety measures in place by hospital policy: Call light within reach, bed in the lowest position and locked, padded rails up x2. Will continue to monitor closely.
--- NOTE | 2016-08-13 18:35 | NUR ---
END OF SHIFT NOTE Patient continues on 5 day Subutex taper and tolerating well. No PRNS given during shift as detox meds are effective. Last COWS 4 CIWA 4. Patient feeling mildly anxious and is mildly tremulous.TB test read during shift and was negative. Patient attended groups and activities. All needs have been met. All safety measures in place. Will pass shift report to oncoming nurse.
[2016-08-13 20:00] VITALS: BP 124/64
[2016-08-13] MEDS: CLONIDINE HCL 0.1 MG TABLET PO PRN (20:33)
--- NOTE | 2016-08-13 20:33 | NUR ---
PRN CATAPRES (CLONIDINE HCL) 0.1 MG PO ADMINISTRATION Patient c/o increased anxiety and agitation. Ordered PRN Clonidine PO discussed with patient. Patient was educated for actions, side effects, and adverse reactions of Catapres ( Clonidine). Patient return his knowledge back n by verbalized understanding. PRN Catapres ( Clonidine) 0.1 mg 1 tablet PO administrated as ordered with full glasses of water. Patient tolerated well. Will re-assess in one hour. All needs met. Safety measures in place by hospital policy: Call light within reach, bed in the lowest position and lock, padded rails up x2. Will continue to monitor closely.
[2016-08-14] VITALS: BP 102/60
[2016-08-14 04:00] VITALS: BP 119/57
--- NOTE | 2016-08-14 07:05 | NUR ---
END OF SHIFT NOTE: Patient endorsed to day shift nurse in stable condition. Report given. Patient is a 35 year old male admitted to [facility] on 08/10/16 for Opioid/Benzodiazepines and Meth dependence, continues 5 Day Subutex Taper since 08/10/16. Patient tolerated well. Patient remains compliant with treatment plan, medications, and diet regimen. NKA, Regular Diet, Full Code, Seizures and Fall Precautions. Patient denies Seizures History. Upon last assessment at 04:00, COWS decreased from 5 to 3; CIWA decreased from 5 to 3. Patient presented with the following symptoms of withdrawal: Anxiety, agitation, nervousness, sweating, and tremors that can be felt. Patient denies SI/HI. VS: T:98'4, BP: 119/57; HR: 54; RA O2 Sat: 98%; RR: 20. Pain level: "0/10". Breathing is even and unlabored. Patient denies SOB and chest pain. Skin is intact, warm and moist by tough. No PRN Medications given during shift. Patient encouraged to fluids intake, as tolerated. Patient attended group activities. Patient slept 8 hours, intake 1330 ml, voided x2. All needs met. Safety measures in place by hospital policy: Call light within reach, bed in the lowest position and lock, padded rails up x2.
--- NOTE | 2016-08-14 07:43 | NUR ---
START OF SHIFT NOTE Received pt this AM Aox4. Patient presents fatigued and states he wants to sleep in a little longer.. Patient on 5 day Subutex taper. He was given PRN Clonidine by feed crusher operator. He slept 8 hours. Last COWS 3 CIWA 3 per night nurse. Encouraged pt to notify RN when s/s of w/d worsen. Encouraged pt to increase fluid intake to facilitate detox. Encouraged attendance of groups and activities.
[2016-08-14 08:00] VITALS: BP 137/75
[2016-08-14] MEDS: MULTIVITAMINS,THERAPEUTIC TABLET PO SCH (08:44)
[2016-08-14] MEDS: ASCORBIC ACID 250 MG TABLET PO SCH ×2 (08:44→20:44)
[2016-08-14] MEDS: GABAPENTIN 300 MG CAPSULE PO SCH ×3 (08:44→20:46)
[2016-08-14] MEDS: FERROUS SULFATE 325 MG TABEC PO SCH ×2 (08:44→20:45)
[2016-08-14] MEDS: CHOLECALCIFEROL 1,000 UNIT TABLET PO SCH (08:44)
[2016-08-14] MEDS: CLONIDINE HCL 0.1 MG TABLET PO SCH ×2 (08:44→20:45)
--- NOTE | 2016-08-14 08:49 | NUR ---
MED REFUSAL Patient refused 0900 Gabapentin. He states he doesn't like the way it is making him feel. Explained risks of skipping dosing and benefits of medication. patient still refused. will monitor
[2016-08-14] MEDS ORDERED: BUPRENORPHINE HCL 2 MG TAB.SUBL SL SCH (09:00)
[2016-08-14 12:00] VITALS: BP 148/93
--- NOTE | 2016-08-14 14:05 | NUR ---
Clinician encouraged client to attend afternoon group. Client said he would attend.
--- NOTE | 2016-08-14 14:15 | NUR ---
PRN MED prn Robitussin given for c/o coughing. will reassess
--- NOTE | 2016-08-14 15:00 | NUR ---
PRN REASSESSMENT Patient states cough has improved. WIll continue to monitor
[2016-08-14 16:00] VITALS: BP 141/100
[2016-08-14] MEDS: HYDROXYZINE PAMOATE 25 MG CAPSULE PO PRN (16:30)
--- NOTE | 2016-08-14 16:31 | NUR ---
PRN MEDS PRN Vistaril given for anxiety. Patient presents anxious and restless. Will reassess.
--- NOTE | 2016-08-14 16:55 | NUR ---
Therapist notified client of group times. Client reported he did not attend morning group because he wanted to sleep.
--- NOTE | 2016-08-14 17:00 | NUR ---
PRN REASSESSMENT Patient reports feeling "much better." He appears less anxious and less restless. Will continue to monitor
[2016-08-14 17:30] LABS: *AMPHETAMINE, URINE NEGATIVE (NEGATIVE); *BARBITURATE, URINE NEGATIVE (NEGATIVE); *CANNABINOID, URINE NEGATIVE (NEGATIVE); *COCCAINE, URINE NEGATIVE (NEGATIVE); *OPIATE, URINE NEGATIVE (NEGATIVE); *PHENCYCLIDINE SCREEN,URINE NEGATIVE (NEGATIVE)
[2016-08-14] MEDS ORDERED: HYDR-3895 PO (17:44)
[2016-08-14] MEDS ORDERED: Gabapentin PO (17:44)
[2016-08-14] MEDS ORDERED: Ibuprofen PO (17:44)
[2016-08-14] MEDS ORDERED: ASCO250T5 PO (17:44)
[2016-08-14] MEDS ORDERED: FERR325T28 PO (17:44)
[2016-08-14] MEDS ORDERED: METH-33 PO (17:44)
[2016-08-14] MEDS ORDERED: DICY20TA28 PO (17:44)
[2016-08-14] MEDS ORDERED: DIPH50CA37 PO (17:44)
[2016-08-14] MEDS ORDERED: CHOL10002 PO (17:44)
--- NOTE | 2016-08-14 18:25 | NUR ---
END OF SHIFT NOTE Patient completed 5 day Subutex taper. Patient presents with brighter mood and affect during shift. PRN Robitussin and Vistaril given during shift with effectiveness. Last COWS 3 CIWA 4. Patient is scheduled for discharge tomorrow. UDS collected and sent to lab. Patient refused Gabapentin during shift as he states he does not like the way it makes him feel. Patient attended groups and activities. All needs have been met. All safety measures in place. Will pass shift report to oncoming nurse.
--- NOTE | 2016-08-14 19:30 | NUR ---
START OF SHIFT Patient is a 35 year old male admitted to [facility] on 08/10/16 for Opioid/Benzodiazepines and Meth dependence. Patient has completed his Subutex taper ,tolerated well. Patient remains compliant with treatment plan, medications, and diet regime. No Known allergies, Regular Diet, Full Code, Seizures and Fall Precautions. Skin is intact, warm and dry to touch. Patient encouraged to fluids intake, as tolerated. Patient is scheduled for discharge tomorrow.All needs met. Safety measures in place by hospital policy: Call light within reach, bed in the lowest position and lock, padded rails up x2. Will continue to monitor closely.
[2016-08-14 20:00] VITALS: BP 143/109
--- NOTE | 2016-08-15 | NUR ---
V/S REFUSED.COWS/CIWA DEFERRED. PT SEEN COMFORTABLY SLEEPING IN BED.BREATHING IS EVEN AND NON LABORED.NO S/S OF DISTRESS NOTED.WILL CONTINUE TO MONITOR.
--- NOTE | 2016-08-15 04:00 | NUR ---
V/S REFUSED.COWS/CIWA DEFERRED. Pt sleeping comfortably in bed;breathing is even and non labored;no s/s of distress noted;all safety measures in place;will continue to monitor.
--- NOTE | 2016-08-15 06:47 | NUR ---
END OF SHIFT Patient is a 35 year old male admitted to [facility] on 08/10/16 for Opioid/Benzodiazepines and Meth dependence. Patient has completed his Subutex taper ,tolerated well. Patient remains compliant with treatment plan, medications, and diet regime. NKA, Regular Diet, Full Code, Seizures and Fall Precautions. Skin is intact, warm and dry to touch. Patient encouraged to fluids intake, as tolerated. Patient is scheduled for discharge today.No PRN meds given;Pt slept 8 hrs,fluid intake was 796 mls,voided x 3 .All needs met. Safety measures in place by hospital policy: Call light within reach, bed in the lowest position and lock, padded rails up x2. Will continue to monitor closely. Addendum: 08/15/16 at 0658 by RIKKI MORALES RN LAST COWS=2.CIWA-1,AT 2000 LAST NIGHT.
--- NOTE | 2016-08-15 07:30 | NUR ---
Start of shift note; Received report from night nurse. Patient is a 35 year old male admitted on 08/10/16 for Opiate/ Meth dependence. Patient completed Subutex taper without any adverse reactions. Patient reported history of bipolar, depression,anxiety, HTN. Patient is medically cleared for discharge today. All safety measures secured. Will continue to monitor patient.
[2016-08-15 08:00] VITALS: BP 126/93
[2016-08-15] MEDS: CHOLECALCIFEROL 1,000 UNIT TABLET PO SCH (08:40)
[2016-08-15] MEDS: ASCORBIC ACID 250 MG TABLET PO SCH (08:40)
[2016-08-15] MEDS: FERROUS SULFATE 325 MG TABEC PO SCH (08:40)
[2016-08-15] MEDS: MULTIVITAMINS,THERAPEUTIC TABLET PO SCH (08:40)
[2016-08-15] MEDS: GABAPENTIN 300 MG CAPSULE PO SCH (08:40)
[2016-08-15 08:41] VITALS: BP 126/93
[2016-08-15] MEDS: CLONIDINE HCL 0.1 MG TABLET PO SCH (08:41)
[2016-08-15] MEDS: ACETAMINOPHEN 325 MG TABLET PO PRN (12:52)
--- NOTE | 2016-08-15 12:52 | NUR ---
PRN medication; Patient is complaining of pain/headache rated 6/10 on pain scale. Tylenol 650mg PO PRN given. Will continue to monitor patient.
--- NOTE | 2016-08-15 13:30 | NUR ---
Re-assessment; Patient's pain/headache decreased to 3/10 from 6/10, PRN medication is effective.
--- NOTE | 2016-08-15 13:42 | NUR ---
Discharge note; Patient is AOX4. All patient's belongings, valuables, prescriptions were given to patient. Patient's V/S WNL. Patient denies suicidal /homicidal ideation. Patient was escorted off the unit by BUTCHER. Patient left the hospital at exactly 1342 on 08/15/16. Patient completed taper without any adverse reactions. Met all needs.
== END 2016-08-15 13:42 | disposition home or self-care (01) | DRG 895 ==
LOC: SRC 08-10 00:33
PROVIDERS: ADMIT Internal Medicine; ATTEND Internal Medicine
PROC: HZ2ZZZZ Detoxification Services for Substance Abuse Treatment (ICD-10-PCS; principal; 2016-08-10)
PROC: HZ31ZZZ Individual Counseling for Substance Abuse Treatment, Behavioral (ICD-10-PCS; 2016-08-10)
PROC: HZ41ZZZ Group Counseling for Substance Abuse Treatment, Behavioral (ICD-10-PCS; 2016-08-10)
DX: F11.23 Opioid dependence with withdrawal (principal); E87.6 Hypokalemia; F41.9 Anxiety disorder, unspecified; F15.10 Other stimulant abuse, uncomplicated; Z81.8 Family history of other mental and behavioral disorders; F13.10 Sedative, hypnotic or anxiolytic abuse, uncomplicated; D50.9 Iron deficiency anemia, unspecified; F17.210 Nicotine dependence, cigarettes, uncomplicated; F39 Unspecified mood [affective] disorder; F10.21 Alcohol dependence, in remission; J20.8 Acute bronchitis due to other specified organisms; J00 Acute nasopharyngitis [common cold]; R73.9 Hyperglycemia, unspecified; E55.9 Vitamin D deficiency, unspecified
CPT/HCPCS: 36415; 70030-TC; 71010; 80307; 80324; 80346; 80361; 82306; 82746; 83550; 83735; 84100; 85025; 86403; 86580; 86705; 87070; 87340; 87400; 87806; G6040-TC